=== PATIENT | female | born 1980 | race Caucasian/White ===

== ENCOUNTER → 2017-03-15 | Outpatient (CLI) | payer OTHER | LOC: FIMAGING 12:56 | PROVIDERS: ATTEND Internal Medicine Hematology & Oncology | DX: Z12.31 Encounter for screening mammogram for malignant neoplasm of breast (principal) | CPT/HCPCS: G0202 ==

== ENCOUNTER → 2018-01-04 | Outpatient (CLI) | payer OTHER | LOC: FIMAGING 12:10 | PROVIDERS: ATTEND Advanced Practice Midwife | DX: O09.512 Supervision of elderly primigravida, second trimester (principal); Z3A.19 19 weeks gestation of pregnancy ==

== ENCOUNTER 2018-06-06 12:16 | Inpatient (IN) | payer OTHER ==
[2018-06-06] MEDS ORDERED: LIDOCAINE 1% 300 MG/30 ML SDV ONE (13:41)
[2018-06-06] MEDS ORDERED: OLIVE OIL 118 ML BTL ONE (13:42)
[2018-06-06] MEDS ORDERED: TERBUTALINE SULFATE 1 MG/ML VIAL ONE (13:42)
[2018-06-06] MEDS ORDERED: OXYTOCIN 10 UNIT/ML VIAL ONE (13:42)
[2018-06-06] MEDS ORDERED: AMMONIA AROMATIC 1 EACH AMP IH ONE (13:42)
[2018-06-06] MEDS ORDERED: MISOPROSTOL 200 MCG TAB ONE (13:43)
[2018-06-06] MEDS ORDERED: IBUPROFEN 600 MG TAB PO PRN (13:59)
[2018-06-06] MEDS ORDERED: TERBUTALINE SULFATE 1 MG/ML VIAL IV PRN (13:59)
[2018-06-06] MEDS ORDERED: OXYTOCIN/RINGERS LACTATE 1,000 ML IV PRN (13:59)
[2018-06-06] MEDS ORDERED: MISOPROSTOL 200 MCG TAB PR PRN (13:59)
[2018-06-06] MEDS ORDERED: OLIVE OIL 118 ML BTL MISC PRN (13:59)
[2018-06-06] MEDS ORDERED: LIDOCAINE 1% 300 MG/30 ML SDV SC PRN (13:59)
[2018-06-06] MEDS ORDERED: EPSOM SALT 454 GM TP PRN (13:59)
[2018-06-06] MEDS ORDERED: LR 1,000 ML IV PRN (13:59)
--- NOTE | 2018-06-06 18:26 | PDGENHP ---
History and Physical History and Physical: Care: [facility] HPI: Patient is a 38 yo with IUP@ 41-1weeks that presents to L&D with complaints of contractions since about midnight. she states contractions have increased slowly throughout the morning. She is breathing through them. She denies any LOF, VB. EDC: 05/29/18 which is based on LMP: 08/22/17 which is known and consistent with Ultrasound at 10 weeks. Her is complicated by: PRAFUL @ 28wks, AMA, depression/anxiety (no meds) Review of Systems: Constitutional: Denies any fever, chills, or fatigue HEENT: denies any visual changes, difficulty swallowing, hearing loss Cardiovascular: Denies any chest pain, palpitations, leg swelling Respiratory: denies any cough, wheezing, or shortness of breathe GI: Denies any nausea, vomiting, diarrhea, constipation : denies any dysuria, urgency, frequency, vaginal bleeding Musculoskeletal: denies any muscle or bone pain Skin: denies any rashes Neuro: denies any headache, seizures, lightheadedness, dizziness, or loss of consciousness Psychiatric: denies any depression, anxiety, or SI/HI thoughts HISTORY: Previous OB history: G1 Past medical history: depression/anxiety (no meds) Past surgical history: breast bx, oral surgery, colposcopy Social: Denies any alcohol, tobacco, or drug use. Family history: sister breast cancer Medications: PNV Allergies (list reaction): NKDA LABS: Rh: A+ ABS: Neg Rubella: Immune HbsAg: NR HIV: NR VDRL: NR 1hr: 112 GC: Neg Chlamydia: Neg Pap: Normal GBS: negative BMI: (prepreg) 21 PHYSICAL EXAM: Constitutional: WN, A&Ox3 HEENT: normocephalic atraumatic, supple Skin: Warm, dry, intact Heart: RRR, no murmur Chest: CTA-B Abdomen: Soft, nontender, gravid SVE: 5/80/-1 Extremities: no edema, negative homans sign Neuro: grossly normal Psych: normal affect assessment: FHT baseline 135 +accels, no decels, moderate variability Contractions: toco q 6-7 Assessment: 1) [id number] with IUP@ 41-1wks 2) Labor 3) GBS negative 4) Cat 1 FHR tracing Plan: 1) Admit to L&D 2) expectant management Today's visit was approximately 45 min, of which >50% of visit 30 min, was spent face to face with pt on direct counseling/coordination of care.
--- NOTE | 2018-06-06 18:29 | OBPROG ---
Labor Progress Note Assessment/Plan: Assessment: [id number] with IUP@ 41-1wks Labor SROM @ 1430 FHT 130's Plan: acupuncture per pt request declines pitocin at this time will cont IA per protocol reassess 2-4hr/PRN 06/06/18 18:26 Subjective/Intrapartum Course: 06/06/18 18:27 Pt doing ok, feeling a little discouraged with lack of progress. She is breathing through contractions. Reports leaking fluid with each contraction. - SVE Dilation (cm): 6 Effacement (%): 90 Station: -1 Membranes: SROM Amniotic Fluid Color: Clear - Contraction Pattern Assessment Current Contraction Pattern: Regular CNM Assessment - Uterine Assessment Contraction Strength: Mild Uterine Resting Tone: Palpates Soft Between Uterine Contractions Contraction Frequency (minutes): q 10 Contraction Duration (sec): 30 - Intermittent Auscultation Auscultation Method Used: Doppler Heart Rate Auscultated (bpm): 130 FHR Acceleration(s) Auscultated: Yes FHR Deceleration(s) Auscultated: No Oxytocin Orders Assessment - Pre-Induction/Augmentation Assessment Gestational Age: 41 week(s) and 1 day(s) ICD10 Worksheet Patient Problems: Problems Problem Status Onset Indication for care in labor or delivery Acute - ICD10 Problem Qualifiers (1) Indication for care in labor or delivery
[2018-06-06] MEDS ORDERED: HEMABATE 250 MCG/1 ML AMP IM ONE (22:36)
[2018-06-07] MEDS ORDERED: LR 500 ML IV PRN (00:17)
--- NOTE | 2018-06-07 00:22 | OBPROG ---
Labor Progress Note Assessment/Plan: Assessment: [id number] with IUP@ 41-1wks protracted labor GBS Negative SROM @ 1430 FHT 130's Plan: cont expectant management cont acupuncture/acupressure recommended pitocin augmentation at this time, pt declines reassess 2-4hr/PRN Subjective/Intrapartum Course: 06/06/18 18:27 Pt doing ok, feeling a little discouraged with lack of progress. She is breathing through contractions. Reports leaking fluid with each contraction. 06/07/18 20:20 Pt doing well, denies any pressure. She reports irregular contractions. FOB and pipe coremaker present at BS and supportive - SVE Dilation (cm): 9 Effacement (%): 90 Station: -1 Membranes: SROM Amniotic Fluid Color: Clear - Contraction Pattern Assessment Current Contraction Pattern: Regular - AP Antepartum Course: CNM Assessment - Uterine Assessment Contraction Strength: Moderate Uterine Resting Tone: Palpates Soft Between Uterine Contractions Contraction Frequency (minutes): q 6 Contraction Duration (sec): 45 - Intermittent Auscultation Auscultation Method Used: Doppler Heart Rate Auscultated (bpm): 135 FHR Acceleration(s) Auscultated: Yes FHR Deceleration(s) Auscultated: No Oxytocin Orders Assessment - Pre-Induction/Augmentation Assessment Gestational Age: 41 week(s) and 1 day(s) ICD10 Worksheet Patient Problems: Problems Problem Status Onset Indication for care in labor or delivery Acute - ICD10 Problem Qualifiers (1) Indication for care in labor or delivery
--- NOTE | 2018-06-07 00:29 | OBPROG ---
Labor Progress Note Assessment/Plan: Assessment: [id number] with IUP@ 41-1wks protracted labor/irregular contractions GBS Negative SROM @ 1430 FHT 135 Plan: cont expectant management cont acupuncture/acupressure recommended pitocin augmentation at this time, pt declines pt agreeable to nipple stimulation Subjective/Intrapartum Course: 06/06/18 18:27 Pt doing ok, feeling a little discouraged with lack of progress. She is breathing through contractions. Reports leaking fluid with each contraction. 06/07/18 20:20 Pt doing well, denies any pressure. She reports irregular contractions. FOB and information security risk analyst present at BS and supportive 06/07/18 22:00 Pt having urge to push, involuntarily pushing. She is agreeable to cont nipple stimulation. - SVE Dilation (cm): 10 Effacement (%): 100 Station: 0 Membranes: SROM Amniotic Fluid Color: Clear - Contraction Pattern Assessment Current Contraction Pattern: Regular - AP Antepartum Course: CNM Assessment - Uterine Assessment Contraction Frequency (minutes): 6 Contraction Duration (sec): 45 - Intermittent Auscultation Auscultation Method Used: Doppler Heart Rate Auscultated (bpm): 135 FHR Acceleration(s) Auscultated: Yes FHR Deceleration(s) Auscultated: No Oxytocin Orders Assessment - Pre-Induction/Augmentation Assessment Gestational Age: 41 week(s) and 1 day(s) ICD10 Worksheet Patient Problems: Problems Problem Status Onset Indication for care in labor or delivery Acute - ICD10 Problem Qualifiers (1) Indication for care in labor or delivery
[2018-06-07] MEDS ORDERED: OXYTOCIN/RINGERS LACTATE 500 ML IV SCH (00:30)
--- NOTE | 2018-06-07 00:40 | OBPROG ---
Labor Progress Note Assessment/Plan: Assessment: [id number] with IUP@ 41-1wks irregular contractions GBS Negative SROM @ 1430 FHT 135 complete/pushing since 2144 Plan: pt agreeable to pitocin at this time- order placed cont acupuncture/acupressure push once contractions q2-4 min Subjective/Intrapartum Course: 06/06/18 18:27 Pt doing ok, feeling a little discouraged with lack of progress. She is breathing through contractions. Reports leaking fluid with each contraction. 06/07/18 20:20 Pt doing well, denies any pressure. She reports irregular contractions. FOB and container packer operator present at BS and supportive 06/07/18 22:00 Pt having urge to push, involuntarily pushing. She is agreeable to cont nipple stimulation. 06/07/18 00:38 Pt having urge to push with contractions. Agreeable to pitocin. She has multiple support people present. - SVE Dilation (cm): 10 Effacement (%): 100 Station: -1 Membranes: SROM Amniotic Fluid Color: Clear - Contraction Pattern Assessment Current Contraction Pattern: Regular - FHR Assessment Twin A FHR (bpm): 130 FHR Pattern Variability: Moderate FHR Category: 1 - AP Antepartum Course: Oxytocin Orders Assessment - Pre-Induction/Augmentation Assessment Gestational Age: 41 week(s) and 1 day(s) ICD10 Worksheet Patient Problems: Problems Problem Status Onset Indication for care in labor or delivery Acute - ICD10 Problem Qualifiers (1) Indication for care in labor or delivery
[2018-06-07 02:40] LABS: PLATELET COUNT 172 10^3/uL (150-400)
--- NOTE | 2018-06-07 06:14 | OBPROG ---
Labor Progress Note Assessment/Plan: Assessment: [id number] with IUP@ 41-1wks labor GBS Negative SROM @ 1430 cat 2 FHR tracing complete/pushing since 2144 Plan: cont pitocin consult Dr April Landa for VAVD Subjective/Intrapartum Course: 06/06/18 18:27 Pt doing ok, feeling a little discouraged with lack of progress. She is breathing through contractions. Reports leaking fluid with each contraction. 06/07/18 20:20 Pt doing well, denies any pressure. She reports irregular contractions. FOB and billing machine operator present at BS and supportive 06/07/18 22:00 Pt having urge to push, involuntarily pushing. She is agreeable to cont nipple stimulation. 06/07/18 00:38 Pt having urge to push with contractions. Agreeable to pitocin. She has multiple support people present. 06/07/18 04:45 Pt doing ok- pushing with each contraction. Feeling exhausted. discussed possibility of assistance with vacuum- pt agreeable. Objective: 06/07/18 02:00 Patient ABO/Rh A POSITIVE 06/07/18 02:00 - SVE Dilation (cm): 10 Effacement (%): 100 Station: 0, +1 Membranes: SROM Amniotic Fluid Color: Clear Dilation Complete Date: 06/06/18 Dilation Complete Time: 21:30 - Contraction Pattern Assessment Current Contraction Pattern: Regular - AP Antepartum Course: Oxytocin Orders Assessment - Pre-Induction/Augmentation Assessment Gestational Age: 41 week(s) and 1 day(s) ICD10 Worksheet Patient Problems: Problems Problem Status Onset Indication for care in labor or delivery Acute - ICD10 Problem Qualifiers (1) Indication for care in labor or delivery
--- NOTE | 2018-06-07 06:18 | OBDEL ---
Info Type: Vaginal Presentation at Delivery: Vertex L&D Analgesia/Anesthesia Type: None GBS+: No Intrapartum Medications: Generic Name Dose Route Start Last Admin Trade Name Roberto Carlos PRN Reason Stop Dose Admin Oxytocin/Lactated Ringer's 500 mls @ 0 mls/hr 06/07/18 00:30 06/07/18 00:53 Pitocin 30 Units/Lr (Premix) IV 12/04/18 00:29 500 mls CONT LUDY Administration Protocol Per Protocol - Hospital Course Intrapartum: 06/06/18 18:27 Pt doing ok, feeling a little discouraged with lack of progress. She is breathing through contractions. Reports leaking fluid with each contraction. 06/07/18 20:20 Pt doing well, denies any pressure. She reports irregular contractions. FOB and benefits manager present at BS and supportive 06/07/18 22:00 Pt having urge to push, involuntarily pushing. She is agreeable to cont nipple stimulation. 06/07/18 00:38 Pt having urge to push with contractions. Agreeable to pitocin. She has multiple support people present. 06/07/18 04:45 Pt doing ok- pushing with each contraction. Feeling exhausted. discussed possibility of assistance with vacuum- pt agreeable. Indications for Delivery: Spontaneous Labor, SROM Vaginal Delivery - Delivery Provider Delivery Physician/CNM: Alix Varela - Labor and Delivery Onset of Contractions Date: 06/06/18 Onset of Contractions Time: 00:30 Onset of Contractions Type: Spontaneous Rupture of Membranes Date: 06/06/18 Rupture of Membranes Time: 14:50 Rupture of Membranes Type: Spontaneous Amniotic Fluid Color: Clear Dilation Complete Date: 06/06/18 Dilation Complete Time: 21:30 Placenta Delivery Date: 06/07/18 Placenta Delivery Time: 05:31 Total Hours of Labor: 29 Laceration: 3rd Degree Repair: 3-0, Vicryl (repair done by myself with April Landa present) Vaginal Sponge Count Correct: Yes Vaginal Needle Count Correct: Yes Vaginal Sweep Performed: Yes EBL: 300 - Medications Labor Augmentation/Induction Methods Used: Pitocin Labor Augmentation/Induction Indication: Inadequate Contraction Frequency, Inadequate Contraction Strength Assissted Delivery Assisted Delivery Type: Vacuum Station: +2 Pop offs (Total): 0 Pulls (Total): 3 Assisted Delivery Comment: vacuum assisted to bring head under pubic bone, no pop offs. vacuum removed after 3 contractions and pt pushed without assistance for delivery of baby. [place] Data MARIANNE: 05/29/18 Gestational Age: 41 week(s) and 2 day(s) Twin A Delivery Date: 06/07/18 Delivery Time: 05:18 Sex of Infant: Male Score (1 Min): 8 Score (5 Min): 8 ICD10 Worksheet Patient Problems: Problems Problem Status Onset Indication for care in labor or delivery Acute Status post vacuum-assisted vaginal delivery Acute Third degree perineal laceration Acute - ICD10 Problem Qualifiers (1) Indication for care in labor or delivery (2) Third degree perineal laceration (3) Status post vacuum-assisted vaginal delivery
[2018-06-07] MEDS ORDERED: SIMETHICONE 80 MG TAB CHEW PO PRN (06:20)
[2018-06-07] MEDS ORDERED: HYDROCORTISONE 0.5% CREAM TP PRN (06:20)
[2018-06-07] MEDS ORDERED: oxyCODONE IR 5 MG TAB PO PRN (06:25)
[2018-06-07] MEDS: ACETAMINOPHEN 325 MG TAB PO SCH ×3 (10:28→18:28)
[2018-06-07] MEDS: IBUPROFEN 600 MG TAB PO SCH ×2 (12:27→18:28)
[2018-06-07] MEDS: DOCUSATE SODIUM 100 MG CAP PO PRN (20:49)
[2018-06-08] MEDS: ACETAMINOPHEN 325 MG TAB PO SCH ×4 (00:43→19:40)
[2018-06-08] MEDS: IBUPROFEN 600 MG TAB PO SCH ×4 (00:43→19:40)
[2018-06-08] MEDS: DOCUSATE SODIUM 100 MG CAP PO PRN ×2 (10:37→21:56)
--- NOTE | 2018-06-08 16:09 | OBPP ---
Progress Note Assessment/Plan: Assessment: Plan: 06/08/18 16:07 PPD #1; 3rd degree laceration well approx with mod edema Establishing P: reviewed comfort measures for bottom. Discussed need for baby to feed at minimum every 2 to 3 hours for now. They are aware of this and will be waking up baby. Offered stronger medication which patient declined. Plans to discharge home tomorrow. Subjective/ Course: 06/08/18 16:05 Doing well overall. Happy with . States her bottom is pretty sore but finds the donut pillow helpful. Taking ibuprofen and tylenol as well as stool softeners, drinking prune juice etc. Plans on taking a sitz bath soon. Denies need for stronger medication. States baby has been well. Did go for 8 hours last night without waking up to feed 06/08/18 16:07 06/08/18 16:09 Objective: 06/07/18 05:15 Patient ABO/Rh A POSITIVE 06/07/18 02:00 Temp Pulse Resp BP Pulse Ox 37.2 C 79 16 100/63 93 06/07/18 20:30 06/07/18 20:30 06/07/18 20:30 06/07/18 20:30 06/07/18 20:30 Breasts soft; nipples intact Perineum; well apprx with mod edema present Uterine Position/Fundal Height: Umbilicus -1 Uterine Tone: Firm
[2018-06-09] MEDS: ACETAMINOPHEN 325 MG TAB PO SCH ×3 (01:55→14:16)
[2018-06-09] MEDS: IBUPROFEN 600 MG TAB PO SCH ×3 (01:55→14:14)
[2018-06-09] MEDS: DOCUSATE SODIUM 100 MG CAP PO PRN (08:12)
--- NOTE | 2018-06-09 11:35 | OBPP ---
Progress Note Assessment/Plan: Assessment: PPD #2; third degree lacertion well approximation and healing well Plan: 06/08/18 16:07 PPD #1; 3rd degree laceration well approx with mod edema Establishing P: reviewed comfort measures for bottom. Discussed need for baby to feed at minimum every 2 to 3 hours for now. They are aware of this and will be waking up baby. Offered stronger medication which patient declined. Plans to discharge home tomorrow. 06/09/18 11:34 Discharge home today. Reviewed need to ambulate even if for small walks throughout the day. Sitz baths 2 to 3 times a day. Offered narcotic pain medication due to severe pain level however patient declines. Reiterated need to keep stools soft and not to strain. Follow up in office at week 2//6 or as needed. Subjective/ Course: 06/08/18 16:05 Doing well overall. Happy with . States her bottom is pretty sore but finds the donut pillow helpful. Taking ibuprofen and tylenol as well as stool softeners, drinking prune juice etc. Plans on taking a sitz bath soon. Denies need for stronger medication. States baby has been well. Did go for 8 hours last night without waking up to feed 06/08/18 16:07 06/08/18 16:09 06/09/18 11:31 Having a difficult time walking for more than a small walk down the hallway. Was pretty overwhelmed last night after having a bowel movement and not knowing what she was feeling or where to clean. Denies need for any stronger medication. Baby has been well and was up most of the night. Plans on discharging home today. Objective: 06/07/18 05:15 Patient ABO/Rh A POSITIVE 06/07/18 02:00 Temp Pulse Resp BP Pulse Ox 36.6 C 70 16 99/60 L 98 06/08/18 20:00 06/08/18 20:00 06/08/18 20:00 06/08/18 20:00 06/08/18 20:00 Nipples intact bilaterally, breasts soft Examined laceration after pt went had a bm bent over in the bathroom. She had appropriately cleaned herself. Was able to tell her what I was seeing as well as touched the anus as she requested and she is not able to feeling much sensation other than "things hanging out". Laceration well approximated with minimal swelling. Hemorrhoid present. Uterine Position/Fundal Height: Umbilicus -3 Uterine Tone: Firm
--- NOTE | 2018-06-09 11:37 | OBGCSDC ---
General Delivery Information - General Info : 1 Para: 1 Abortions: 0 Type: Vaginal L&D Analgesia/Anesthesia Type: Local Admission Date: 06/06/18 Labs: Patient ABO/Rh A POSITIVE 06/07/18 02:00 Hct 30.2 % (38.0-47.0) L 06/07/18 05:15 - Hospital Course Antepartum: Intrapartum: 06/06/18 18:27 Pt doing ok, feeling a little discouraged with lack of progress. She is breathing through contractions. Reports leaking fluid with each contraction. 06/07/18 20:20 Pt doing well, denies any pressure. She reports irregular contractions. FOB and medical chemist present at BS and supportive 06/07/18 22:00 Pt having urge to push, involuntarily pushing. She is agreeable to cont nipple stimulation. 06/07/18 00:38 Pt having urge to push with contractions. Agreeable to pitocin. She has multiple support people present. 06/07/18 04:45 Pt doing ok- pushing with each contraction. Feeling exhausted. discussed possibility of assistance with vacuum- pt agreeable. : 06/08/18 16:05 Doing well overall. Happy with . States her bottom is pretty sore but finds the donut pillow helpful. Taking ibuprofen and tylenol as well as stool softeners, drinking prune juice etc. Plans on taking a sitz bath soon. Denies need for stronger medication. States baby has been well. Did go for 8 hours last night without waking up to feed 06/08/18 16:07 06/08/18 16:09 06/09/18 11:31 Having a difficult time walking for more than a small walk down the hallway. Was pretty overwhelmed last night after having a bowel movement and not knowing what she was feeling or where to clean. Denies need for any stronger medication. Baby has been well and was up most of the night. Plans on discharging home today. Vaginal - Delivery Provider Delivery Physician/CNM: Alix Varela - Diagnosis Labor: Spontaneous Rupture of Membranes Type: Spontaneous Amniotic Fluid Color: Clear Laceration: 3rd Degree Repair: 3-0, Vicryl (repair done by myself with April Landa present) - Procedures Assisted Delivery Type: Vacuum - Delivery EBL: [address] [place] Data MARIANNE: 12/04/18 Gestational Age: 41 week(s) and 4 day(s) Twin A Delivery Date: 06/07/18 Delivery Time: 05:18 Sex of : Male Weight (gm): 3388 g Score (1 Min): 8 Score (5 Min): 8 Discharge Information - Discharge Information Condition: Good Instruction/Follow Up: Two Weeks, Four Weeks, Six Weeks
[2018-06-09 12:13] VITALS: BP 109/66
== END 2018-06-09 16:00 | disposition home or self-care (01) | DRG 807 ==
LOC: FLD 12:16 → FOB 06-07 09:30
PROVIDERS: ADMIT Advanced Practice Midwife; ATTEND Advanced Practice Midwife
DX: O70.20 Third degree perineal laceration during delivery, unspecified (principal); Z37.0 Single live birth; Z3A.41 41 weeks gestation of pregnancy
CPT/HCPCS: J2590; J3105

== ENCOUNTER → 2018-10-29 | Outpatient (CLI) | payer OTHER | LOC: FLACT 12:04 | PROVIDERS: ATTEND Advanced Practice Midwife | DX: Z39.1 Encounter for care and examination of lactating mother (principal) | CPT/HCPCS: G0463 ==